=== PATIENT | female | born 1935 | race Caucasian/White ===

== ENCOUNTER 2019-03-25 20:25 | Emergency (ER) | payer OTHER, MEDICARE ==
[2019-03-25] MEDS ORDERED: TETRACAINE HCL 0.5% 4ML OPTH ONE (21:16)
[2019-03-25] MEDS ORDERED: NA CHLORIDE 0.9% 1,000 ML ONE (21:26)
[2019-03-25] MEDS ORDERED: FLUORESCEIN SODIUM 1 MG/WRAP ONE (21:47)
--- NOTE | 2019-03-25 22:28 | ER ---
Nurse's Notes [facility] Name: Aiyana Camilo Age: 84 yrs Sex: Female : 1935 Arrival Date: 03/25/2019 Time: 20:27 Bed 7 Private MD: Pawel Hoffman Atiq Diagnosis: Injury of conjunctiva and corneal abrasion without foreign body, left eye Presentation: 03/25 20:38 Presenting complaint: Patient states: Squeezed a Tide Pod into L eye, approx 1630 tl2 today. Pt reports eye redness, itching and a "scratchy" feeling. Pt states she washed her eye for about 3-4 minutes. Transition of care: patient was not received from another setting of care. Onset of symptoms was March 25, 2019 at 16:30. Risk Assessment: Do you want to hurt yourself or someone else?. Initial Sepsis Screen: Does the patient meet any 2 criteria? No. Patient's initial sepsis screen is negative. Does the patient have a suspected source of infection? No. Patient's initial sepsis screen is negative. Care prior to arrival: None. 20:38 Method Of Arrival: Ambulatory tl2 20:38 Acuity: TIM 3 tl2 Triage Assessment: 20:41 EENT: Eyes are tearing on outer aspect of conjuctiva of left eye, iris of left eye and tl2 inner aspect of conjunctiva of left eye Sclera/Cornea are reddened in outer aspect of conjuctiva of left eye, iris of left eye and inner aspect of conjunctiva of left eye. Historical: - Allergies: 20:41 BACITRACIN; tl2 20:41 Crestor; tl2 20:41 Diovan; tl2 20:41 Nexium; tl2 20:41 Rocephin; tl2 - Home Meds: 20:41 furosemide 20 mg Oral tab 1 tab 2 times per day [Active]; simvastatin 10 mg Oral tab 1 tl2 tab once daily [Active]; Hydrochlorothiazide Oral [Active]; losartan oral oral [Active]; calcium carbonate 500 mg calcium (1,250 mg) Oral chew [Active]; - PMHx: 20:41 Anemia; Anxiety; COPD; Hyperlipidemia; Hypertension; Sleep Apnea; tl2 - Immunization history:: Adult Immunizations up to date. - Social history:: Smoking status: Patient/guardian denies using tobacco. - Ebola Screening: : No symptoms or risks identified at this time. Screenin:42 Abuse screen: Denies threats or abuse. Nutritional screening: No deficits noted. tl2 Tuberculosis screening: No symptoms or risk factors identified. Fall Risk None identified. Assessment: 20:45 General: Appears uncomfortable, Behavior is calm, cooperative, appropriate for age. ea Pain: Complains of pain in left eye. Neuro: Level of Consciousness is awake, alert, obeys commands, Oriented to person, place, time. Cardiovascular: Patient's skin is warm and dry. Respiratory: Airway is patent Respiratory effort is even, unlabored, Respiratory pattern is regular, symmetrical. GI: No signs and/or symptoms were reported involving the gastrointestinal system. EENT: Eyes are tearing on outer aspect of conjuctiva of left eye and inner aspect of conjunctiva of left eye Sclera/Cornea are reddened in outer aspect of conjuctiva of left eye and inner aspect of conjunctiva of left eye. Derm: Skin is pink, warm \\T\\ dry. 20:56 Reassessment: Poison control notified, spoke with Emily from poison control, ea irrigation to left eye for 15 min, check for corneal injury, if ABT give f/u ophthalmology. 21:52 Reassessment: Patient and/or family updated on plan of care and expected duration. Pain ea level reassessed. Patient is alert, oriented x 3, equal unlabored respirations, skin warm/dry/pink. Pt tolerating irrigation well. 22:46 Reassessment: Patient and/or family updated on plan of care and expected duration. Pain ea level reassessed. Patient is alert, oriented x 3, equal unlabored respirations, skin warm/dry/pink. Discharge instruction given to patient, verbalized the understanding of instruction. Pt taken to private vehicle via wheelchair, tolerated well. Pt accompanied by daughter. Vital Signs: 20:41 BP 159 / 63; Pulse 71; Resp 18; Temp 98(O); Pulse Ox 97% on R/A; Weight 90.72 kg; tl2 Height 5 ft. 3 in. (160.02 cm); Pain 6/10; 21:38 BP 138 / 55; Pulse 65; Resp 18; Pulse Ox 97% on R/A; ea 22:40 BP 127 / 58; Pulse 67; Resp 18; Temp 97.8; Pulse Ox 98% on R/A; ea 20:41 Body Mass Index 35.43 (90.72 kg, 160.02 cm) tl2 Visual Acuity: 22:26 Left Eye Visual acuity 20/200, Pupil size 2 mm, ; Right Eye Visual acuity 20/15, Pupil ea size 2 mm, ; Both Eyes Visual acuity 20/15; Without Lenses; ED Course: 20:27 Patient arrived in ED. mr 20:27 out of town, doctor is Private Physician. mr 20:27 Pawel Hoffman MD is Private Physician. mr 20:32 Dex Benoit NP is PHCP. pm1 20:32 Freddie Arnett MD is Attending Physician. pm1 20:40 Triage completed. tl2 20:41 Arm band placed on right wrist. tl2 20:45 Marianne Pang RN is Primary Nurse. ea 20:50 Patient has correct armband on for positive identification. Bed in low position. Call ea light in reach. Side rails up X 1. 22:27 Meredith Greenwood MD is Referral Physician. pm1 22:46 No provider procedures requiring assistance completed. Patient did not have IV access ea during this emergency room visit. Administered Medications: 21:17 Drug: Tetracaine Drops 0.5 % 1 drops Route: Ophthalmic; Site: left eye; ea 22:33 Drug: Tobramycin Ointment (0.3 %) 1 application Route: Ophthalmic; Site: left eye; ea 22:45 Follow up: Response: Medication administered at discharge. ea 22:36 Drug: Tylenol #3 (300 mg-30 mg) 1 tablet Route: PO; ea 22:45 Follow up: Response: Medication administered at discharge. ea 22:44 Not Given (Other Intervention Used): Tobramycin Drops (0.3 %) 2 drops Ophthalmic once ea Outcome: 22:28 Discharge ordered by MD. pm1 22:46 Discharged to home via wheelchair, with family. ea 22:46 Condition: improved 22:46 Discharge instructions given to patient, Instructed on discharge instructions, follow up and referral plans. medication usage, Demonstrated understanding of instructions, follow-up care, medications, Prescriptions given X 2. 22:49 Patient left the ED. ea Signatures: Lenora Felder mr Dex Benoit, [employer] TECHNICIAN pm1 Althea Hester RN RN tl2 Marianne Pang RN RN ea Corrections: (The following items were deleted from the chart) 22:44 22:30 Tobramycin Drops (0.3 %) 2 drops Ophthalmic in left eye adan arellano
--- NOTE | 2019-03-25 22:28 | EDPHYS ---
Physician Documentation [facility] Name: Aiyana Camilo Age: 84 yrs Sex: Female : 1935 Arrival Date: 03/25/2019 Time: 20:27 Bed 7 Private MD: Pawel Hoffman Atiq ED Physician Freddie Arnett HPI: 03/25 22:26 This 84 yrs old Female presents to ER via Ambulatory with complaints of pm1 Chemical Exposure In Left Eye. 22:26 The patient is experiencing pain, redness, The patient sustained a splash, to the left pm1 eye, caused by seed cleaner operator detergent . Onset: The symptoms/episode began/occurred just prior to arrival. Duration: the symptoms are continuous. Aggravated by nothing. Alleviated by nothing. Associated signs and symptoms: Pertinent positives: blurred vision. Patient does not utilize any form of vision correction. Severity of symptoms: in the emergency department the symptoms are unchanged. The patient has not experienced similar symptoms in the past. The patient has not recently seen a physician. Patient was getting the packets of seed cleaner operator cleaner signs and when she picked it up it squirted in her left eye. Only washed her left eye for about 3 minutes with water and has been rubbing it. Historical: - Allergies: 20:41 BACITRACIN; tl2 20:41 Crestor; tl2 20:41 Diovan; tl2 20:41 Nexium; tl2 20:41 Rocephin; tl2 - Home Meds: 20:41 furosemide 20 mg Oral tab 1 tab 2 times per day [Active]; simvastatin 10 mg Oral tab 1 tl2 tab once daily [Active]; Hydrochlorothiazide Oral [Active]; losartan oral oral [Active]; calcium carbonate 500 mg calcium (1,250 mg) Oral chew [Active]; - PMHx: 20:41 Anemia; Anxiety; COPD; Hyperlipidemia; Hypertension; Sleep Apnea; tl2 - Immunization history:: Adult Immunizations up to date. - Social history:: Smoking status: Patient/guardian denies using tobacco. - Ebola Screening: : No symptoms or risks identified at this time. ROS: 22:26 Constitutional: Negative for fever, chills, and weight loss, ENT: Negative for injury, pm1 pain, and discharge. 22:26 Neck: Negative for injury, pain, and swelling, Cardiovascular: Negative for chest pain, palpitations, and edema, Respiratory: Negative for shortness of breath, cough, wheezing, and pleuritic chest pain, Abdomen/GI: Negative for abdominal pain, nausea, vomiting, diarrhea, and constipation, Back: Negative for injury and pain, MS/Extremity: Negative for injury and deformity, Skin: Negative for injury, rash, and discoloration, Neuro: Negative for headache, weakness, numbness, tingling, and seizure. 22:26 Eyes: Positive for blurry vision, foreign body sensation, pain, redness, of the left eye. Exam: 22:26 Constitutional: This is a well developed, well nourished patient who is awake, alert, pm1 and in no acute distress. Head/Face: Normocephalic, atraumatic. 22:26 ENT: Nares patent. No nasal discharge, no septal abnormalities noted. Tympanic membranes are normal and external auditory canals are clear. Oropharynx with no redness, swelling, or masses, exudates, or evidence of obstruction, uvula midline. Mucous membranes moist. Neck: Trachea midline, no thyromegaly or masses palpated, and no cervical lymphadenopathy. Supple, full range of motion without nuchal rigidity, or vertebral point tenderness. No Meningismus. Chest/axilla: Normal chest wall appearance and motion. Nontender with no deformity. No lesions are appreciated. Cardiovascular: Regular rate and rhythm with a normal S1 and S2. No gallops, murmurs, or rubs. Normal PMI, no JVD. No pulse deficits. Respiratory: Lungs have equal breath sounds bilaterally, clear to auscultation and percussion. No rales, rhonchi or wheezes noted. No increased work of breathing, no retractions or nasal flaring. Abdomen/GI: Soft, non-tender, with normal bowel sounds. No distension or tympany. No guarding or rebound. No evidence of tenderness throughout. Back: No spinal tenderness. No costovertebral tenderness. Full range of motion. Skin: Warm, dry with normal turgor. Normal color with no rashes, no lesions, and no evidence of cellulitis. MS/ Extremity: Pulses equal, no cyanosis. Neurovascular intact. Full, normal range of motion. 22:26 Eyes: Periorbital structures: appear normal, Pupils: no acute changes, Extraocular movements: no acute changes, Conjunctiva: injected, in the left eye, Corneas: abrasion, that is small, approximately 2 mm(s), on the left, central, foreign body, is not appreciated, a fluorescein strip employed to appreciate the findings, Sclera: no appreciated abnormality, Lids and lashes: appear normal. 22:26 Neuro: Orientation: is normal, Motor: is normal, moves all fours. Vital Signs: 20:41 BP 159 / 63; Pulse 71; Resp 18; Temp 98(O); Pulse Ox 97% on R/A; Weight 90.72 kg; tl2 Height 5 ft. 3 in. (160.02 cm); Pain 6/10; 21:38 BP 138 / 55; Pulse 65; Resp 18; Pulse Ox 97% on R/A; ea 22:40 BP 127 / 58; Pulse 67; Resp 18; Temp 97.8; Pulse Ox 98% on R/A; ea 20:41 Body Mass Index 35.43 (90.72 kg, 160.02 cm) tl2 Visual Acuity: 22:26 Left Eye Visual acuity 20/200, Pupil size 2 mm, ; Right Eye Visual acuity 20/15, Pupil ea size 2 mm, ; Both Eyes Visual acuity 20/15; Without Lenses; MDM: 20:33 Patient medically screened. pm1 22:26 Data reviewed: vital signs. Data interpreted: Pulse oximetry: on room air is 97 %. pm1 Interpretation: normal. Counseling: I had a detailed discussion with the patient and/or guardian regarding: the historical points, exam findings, and any diagnostic results supporting the discharge/admit diagnosis, the need for outpatient follow up, for definitive care, an opthalmologist, to return to the emergency department if symptoms worsen or persist or if there are any questions or concerns that arise at home. 03/25 20:48 Order name: Misc. Order: contact poison control; Complete Time: 21:01 pm03/25 20:48 Order name: Misc. Order: eye irrigation; Complete Time: 21:25 pm03/25 21: Order name: Visual Acuity; Complete Time: 22:27 pm03/25 21: Order name: Eye Tray; Complete Time: 22:23 pm03/25 21: Order name: Fluoresene Opth strip; Complete Time: 22:23 pm1 Administered Medications: 21:17 Drug: Tetracaine Drops 0.5 % 1 drops Route: Ophthalmic; Site: left eye; ea 22:33 Drug: Tobramycin Ointment (0.3 %) 1 application Route: Ophthalmic; Site: left eye; ea 22:45 Follow up: Response: Medication administered at discharge. ea 22:36 Drug: Tylenol #3 (300 mg-30 mg) 1 tablet Route: PO; ea 22:45 Follow up: Response: Medication administered at discharge. ea 22:44 Not Given (Other Intervention Used): Tobramycin Drops (0.3 %) 2 drops Ophthalmic once ea Disposition: 03/26 09:38 Co-signature as Attending Physician, Freddie Arnett MD I agree with the assessment and [facility] plan of care. Disposition: 03/25/19 22:28 Discharged to Home. Impression: Injury of conjunctiva and corneal abrasion without foreign body, left eye. - Condition is Stable. - Discharge Instructions: Corneal Abrasion. - Prescriptions for Tylenol- Codeine #3 300-30 mg Oral Tablet - take 1 tablet by ORAL route every 6 hours As needed; 12 tablet. Vigamox 0.5 % Ophthalmic Drops - instill 1 drop by OPHTHALMIC route every 8 hours for 7 days; 5 milliliter. - Medication Reconciliation Form, Thank You Letter, Antibiotic Education, Prescription Opioid Use form. - Follow up: Emergency Department; When: As needed; Reason: Worsening of condition. Follow up: Meredith Greenwood MD; When: 2 - 3 days; Reason: Recheck today's complaints, Continuance of care, Re-evaluation by your physician. - Problem is new. - Symptoms have improved. Signatures: Freddie Arnett MD MD cha Marinas, Patrick, NP [employer]ENT[employer] DEVELOPER pm1 Althea Hester RN RN tl2 Marianne Pang RN RN ea Corrections: (The following items were deleted from the chart) 03/25 22:49 22:28 03/25/2019 22:28 Discharged to Home. Impression: Injury of conjunctiva and ea corneal abrasion without foreign body, left eye. Condition is Stable. Forms are Medication Reconciliation Form, Thank You Letter, Antibiotic Education, Prescription Opioid Use. Follow up: Emergency Department; When: As needed; Reason: Worsening of condition. Follow up: Meredith Greenwood; When: 2 - 3 days; Reason: Recheck today's complaints, Continuance of care, Re-evaluation by your physician. Problem is new. Symptoms have improved. pm1
[2019-03-25] MEDS ORDERED: TOBRAMYCIN SULF 0.3% OPTH OINT ONE (22:46)
[2019-03-25] MEDS ORDERED: CODEINE 30MG/APAP 300MG TAB ONE (22:53)
== END 2019-03-25 22:49 | disposition home or self-care (01) ==
LOC: ER 20:25
DX: S05.02XA Injury of conjunctiva and corneal abrasion without foreign body, left eye, initial encounter (principal); I10 Essential (primary) hypertension; J44.9 Chronic obstructive pulmonary disease, unspecified; E78.5 Hyperlipidemia, unspecified; F41.9 Anxiety disorder, unspecified; Z88.1 Allergy status to other antibiotic agents; Z88.8 Allergy status to other drugs, medicaments and biological substances
CPT/HCPCS: 99283; J7030